=== PATIENT | male | born 1965 | race Caucasian/White ===

== ENCOUNTER 2016-10-30 15:24 | Observation (INO) ==
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
--- OUTSIDE RECORDS SUMMARY | 2016-10-30 15:50 | External Medical Summary | Encounter Summary ---
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 known anemia. Liver and Biliary system: The liver is normal in size without obviouslesion or biliary ductal dilatation. Gallbladder is largely decompressed. Spleen: Unremarkable. Adrenal Glands and Kidneys: The adrenal glands are unremarkable. There ismoderate bilateral nonspecific perinephric stranding/edema. Nohydronephrosis. Pancreas and Retroperitoneum: The pancreas is atrophic. No significantlyenlarged retroperitoneal lymph nodes are seen. Aorta and Major Vessels: Abdominal aorta is normal caliber. Bowel, Mesentery and Peritoneal space: There has been prior colectomy witha right lower quadrant ileostomy identified. There is mild abdominal freefluid with mesenteric edema. Evaluation of the bowel is limited without contrast. Area of gas and fluid deep to the midline abdominal wall islikely extraluminal in location, as demonstrated on image 3/5, similar inappearance to the prior exam. Abdominal wall and Osseous Structures: Right lower quadrant ileostomy isnoted with removal of the previously seen Marquez catheter traversing theostomy. There is progressive, now moderate, body wall edema with persistent foci of abdominal wall gas which demonstrates overall decreasecompared with August 01, 2016. No discrete drainable abdominal wall fluidcollection is seen. Prior posterior spinal fixation is again noted at L3-4 with marked disc degeneration and mild listhesis at the L2-3 level. IMPRESSION 1. Continued area of clustered gas, soft tissue thickening, and mild fluiddeep to the anterior abdominal wall at midline which is incompletelyevaluated without contrast, though may reflectpostoperative/postprocedural change versus an abscess. 2. Continued mild abdominal ascites and progressive body wall edema withimprovement in anterior abdominal wall gas. No drainable abdominal wallfluid collection is seen. 3. Removal of Marquez catheter that was previously seen traversing the rightlower quadrant ileostomy. Visualized bowel loops are now normal caliber. 4. Development of small to moderate bilateral pleural effusions andadjacent consolidation which may reflect atelectasis or pneumonia. Finalized by Roya Shelton M.D. on 08/05/2016 10:58 AM. Dictated byRoya Shelton M.D. on 08/05/2016 10:40 AM. CBC (08/05/2016 7:44 AM) Component Value Ref Range White Blood Cells 5.1 4.5 - 11.0 K/UL RBC 2.68(L) 4.4 - 5.5 M/UL Hemoglobin 8.0(L) 13.5 - 16.5 GM/DL Hematocrit 23.6(L) 40 - 50 % MCV 88.1 80 - 100 FL MCH 29.9 26 - 34 PG MCHC 33.9 32.0 - 36.0 G/DL RDW 13.9 11 - 15 % Platelet Count 174 150 - 400 K/UL MPV 7.1 7 - 11 FL Specimen Performing Laboratory Blood MAIN LAB [address] [place] [address] PHOSPHORUS (08/05/2016 5:18 AM) Component Value Ref Range Phosphorus 2.8 2.0 - 4.0 MG/DL Specimen Performing Laboratory Blood MAIN LAB [address] [place] [address] MAGNESIUM (08/05/2016 5:18 AM) Component Value Ref Range Magnesium 1.5(L) 1.6 - 2.6 mg/dL Specimen Performing Laboratory Blood MAIN [facility] [address] [place] [address] BASIC METABOLIC PANEL (08/05/2016 5:18 AM) Component Value Ref Range Sodium 134(L) 137 - 147 MMOL/L Potassium 3.8 3.5 - 5.1 MMOL/L Chloride 107 98 - 110 MMOL/L CO2 22 21 - 30 MMOL/L Anion Gap 5 3 - 12 Glucose 107(H) 70 - 100 MG/DL Blood Urea Nitrogen 7 7 - 25 MG/DL Creatinine 0.49 0.4 - 1.24 MG/DL Calcium 7.7(L) 8.5 - 10.6 MG/DL eGFR Non >60 >60 mL/min Comment: The eGFR is not validated for use in drug dosing adjustments.Continue to use estimated creatinine clearance per dosing reference text.Please contact the Clinical Pharmacist for questions. eGFR >60 >60 mL/min Comment: The eGFR is not validated for use in drug dosing adjustments.Continue to use estimated creatinine clearance per dosing reference text.Please contact the Clinical Pharmacist for questions. Specimen Performing Laboratory Blood MAIN [facility] [address] [place] [id number] ECG-SCAN (08/04/2016 3:03 PM) Narrative Ordered by an unspecified provider. ECG-SCAN (08/04/2016 3:03 PM) Narrative Ordered by an unspecified provider. PHOSPHORUS (08/04/2016 6:13 AM) Component Value Ref Range Phosphorus 1.9(L) 2.0 - 4.0 MG/DL Specimen Performing Laboratory Blood [facility] [address] [place] [address] MAGNESIUM (08/04/2016 6:13 AM) Component Value Ref Range Magnesium 2.1 1.6 - 2.6 mg/dL Specimen Performing Laboratory Blood MAIN [facility] [address] [place] [id number] CBC (08/04/2016 6:13 AM) Component Value Ref Range White Blood Cells 6.3 4.5 - 11.0 K/UL RBC 3.10(L) 4.4 - 5.5 M/UL Hemoglobin 9.4(L) 13.5 - 16.5 GM/DL Hematocrit 27.1(L) 40 - 50 % MCV 87.4 80 - 100 FL MCH 30.1 26 - 34 PG MCHC 34.5 32.0 - 36.0 G/DL RDW 13.7 11 - 15 % Platelet Count 193 150 - 400 K/UL MPV 7.6 7 - 11 FL Specimen Performing Laboratory Blood [facility] [address] [place] [id number] BASIC METABOLIC PANEL (08/04/2016 6:13 AM) Component Value Ref Range Sodium 132(L) 137 - 147 MMOL/L Potassium 3.6 3.5 - 5.1 MMOL/L Chloride 102 98 - 110 MMOL/L CO2 27 21 - 30 MMOL/L Anion Gap 3 3 - 12 Glucose 75 70 - 100 MG/DL Blood Urea Nitrogen 9 7 - 25 MG/DL Creatinine 0.61 0.4 - 1.24 MG/DL Calcium 7.9(L) 8.5 - 10.6 MG/DL eGFR Non >60 >60 mL/min Comment: The eGFR is not validated for use in drug dosing adjustments.Continue to use estimated creatinine clearance per dosing reference text.Please contact the Clinical Pharmacist for questions. eGFR >60 >60 mL/min Comment: The eGFR is not validated for use in drug dosing adjustments.Continue to use estimated creatinine clearance per dosing reference text.Please contact the Clinical Pharmacist for questions. Specimen Performing Laboratory [facility] [address] [place] [id number] PHOSPHORUS (08/03/2016 5:32 AM) Component Value Ref Range Phosphorus 1.6(L) 2.0 - 4.0 MG/DL Specimen Performing Laboratory Blood [facility] [address] [place] [id number] MAGNESIUM (08/03/2016 5:32 AM) Component Value Ref Range Magnesium 1.5(L) 1.6 - 2.6 mg/dL Specimen Performing Laboratory [facility] [address] [place] [id number] CBC (08/03/2016 5:32 AM) Component Value Ref Range White Blood Cells 4.8 4.5 - 11.0 K/UL RBC 2.57(L) 4.4 - 5.5 M/UL Hemoglobin 7.8(L) 13.5 - 16.5 GM/DL Hematocrit 22.6(L) 40 - 50 % MCV 88.0 80 - 100 FL MCH 30.2 26 - 34 PG MCHC 34.4 32.0 - 36.0 G/DL RDW 14.1 11 - 15 % Platelet Count 181 150 - 400 K/UL MPV 7.6 7 - 11 FL Specimen Performing Laboratory Blood [facility] [address] [place] [address] BASIC METABOLIC PANEL (08/03/2016 5:32 AM) Component Value Ref Range Sodium 137 137 - 147 MMOL/L Potassium 3.2(L) 3.5 - 5.1 MMOL/L Chloride 106 98 - 110 MMOL/L CO2 28 21 - 30 MMOL/L Anion Gap 3 3 - 12 Glucose 75 70 - 100 MG/DL Blood Urea Nitrogen 12 7 - 25 MG/DL Creatinine 0.58 0.4 - 1.24 MG/DL Calcium 8.4(L) 8.5 - 10.6 MG/DL eGFR Non >60 >60 mL/min Comment: The eGFR is not validated for use in drug dosing adjustments.Continue to use estimated creatinine clearance per dosing reference text.Please contact the Clinical Pharmacist for questions. eGFR >60 >60 mL/min Comment: The eGFR is not validated for use in drug dosing adjustments.Continue to use estimated creatinine clearance per dosing reference text.Please contact the Clinical Pharmacist for questions. Specimen Performing Laboratory Blood [facility] [address] [place] [id number] PHOSPHORUS (08/02/2016 4:58 AM) Component Value Ref Range Phosphorus 1.5(L) 2.0 - 4.0 MG/DL Specimen Performing Laboratory Blood [facility] [address] [place] [address] MAGNESIUM (08/02/2016 4:58 AM) Component Value Ref Range Magnesium 1.9 1.6 - 2.6 mg/dL Specimen Performing Laboratory Blood [facility] [address] [place] [id number] CBC (08/02/2016 4:58 AM) Component Value Ref Range White Blood Cells 7.5 4.5 - 11.0 K/UL RBC 2.49(L) 4.4 - 5.5 M/UL Hemoglobin 7.7(L) 13.5 - 16.5 GM/DL Hematocrit 21.5(L) 40 - 50 % MCV 86.5 80 - 100 FL MCH 30.9 26 - 34 PG MCHC 35.7 32.0 - 36.0 G/DL RDW 13.8 11 - 15 % Platelet Count 153 150 - 400 K/UL MPV 8.2 7 - 11 FL Specimen Performing Laboratory Blood [facility] [address] [place] [address] BASIC METABOLIC PANEL (08/02/2016 4:58 AM) Component Value Ref Range Sodium 139 137 - 147 MMOL/L Potassium 3.0(L) 3.5 - 5.1 MMOL/L Chloride 105 98 - 110 MMOL/L CO2 28 21 - 30 MMOL/L Anion Gap 6 3 - 12 Glucose 146(H) 70 - 100 MG/DL Blood Urea Nitrogen 16 7 - 25 MG/DL Creatinine 0.69 0.4 - 1.24 MG/DL Calcium 8.4(L) 8.5 - 10.6 MG/DL eGFR Non >60 >60 mL/min Comment: The eGFR is not validated for use in drug dosing adjustments.Continue to use estimated creatinine clearance per dosing reference text.Please contact the Clinical Pharmacist for questions. eGFR >60 >60 mL/min Comment: The eGFR is not validated for use in drug dosing adjustments.Continue to use estimated creatinine clearance per dosing reference text.Please contact the Clinical Pharmacist for questions. Specimen Performing Laboratory Blood [facility] [address] [place] [address] CRITICAL CARE (08/01/2016 4:25 PM) Narrative Modesto Powell MD 08/01/20164:25 PM Joselito Sandra is a 50 y.o. male. Chief Complaint: Chief Complaint Patient presents with Foreign Body Pen and Pencil in stoma History of Present Illness: HPI Comments: Joselito Sandra is a 50 y.o. male with a past medical history of depression with previous self injury, ulcerative colitis s/p colostomy placement.The patient is presenting after having stuck himself around the ostomy site multiple times with a pen and a pencil, eventually leaving the pen and pencil stuck in the ostomy.He says he's been refusing his medications for many months and has been very depressed.He stuck the pen/pencil in his ostomy site as a suicide attempt. He denies any drug/alcohol use.He has been eating/drinking well.He only takes his potassium supplement and aspirin. History provided by:Patient and medical records cad designer used: No Review of Systems: Review of Systems Constitutional: Positive for activity change. Negative for fever and chills. HENT: Negative for congestion. Eyes: Negative for visual disturbance. Respiratory: Negative for shortness of breath. Cardiovascular: Negative for chest pain. Gastrointestinal: Positive for abdominal pain. Negative for nausea, vomiting and diarrhea. Endocrine: Negative for polyuria. Genitourinary: Negative for dysuria and flank pain. Musculoskeletal: Negative for back pain and neck pain. Skin: Positive for wound. Negative for rash. Allergic/Immunologic: Negative for immunocompromised state. Neurological: Negative for weakness and headaches. Hematological: Does not bruise/bleed easily. Psychiatric/Behavioral: Positive for suicidal ideas, behavioral problems, sleep disturbance, self-injury, dysphoric mood and agitation. Negative for confusion. All other systems reviewed and are negative. Allergies: Adhesive tape; Azithromycin; and Fentanyl Past Medical History: Past Medical History Diagnosis Date Ulcerative Colitis Rectal Pain Adrenal Insufficiency Past Surgical History: No past surgical history on file. Pertinent medical/surgical history reviewed Social History: Social History Substance Use Topics Smoking status: Not on file Smokeless tobacco: Not on file Alcohol Use: Not on file History Drug Use Not on file Family History: No family history on file. Vitals: ED Vitals Date and Time T BP P RR SPO2P SPO2 [facility] 07/30/165 -- 96/67 mmHg 88 17 PER MINUTE 89 100 % 07/30/162229 -- 91/69 mmHg 86 16 PER MINUTE 86 100 % 07/30/162214 -- 99/69 mmHg 88 11 PER MINUTE 87 98 % 07/30/162199 -- 98/65 mmHg 85 18 PER MINUTE 85 100 % 07/30/162144 -- 97/72 mmHg 82 17 PER MINUTE 83 100 % 07/30/162129 -- 98/72 mmHg 83 15 PER MINUTE 83 100 % 07/30/162112 -- -- 83 20 PER MINUTE 82 (!) 90 % 07/30/162111 -- 98/67 mmHg -- -- -- -- 07/30/162044 -- 109/71 mmHg 86 9 PER MINUTE 86 99 % 07/30/162029 -- 98/72 mmHg 88 8 PER MINUTE 88 100 % 07/30/161999 -- 99/61 mmHg 92 15 PER MINUTE 94 99 % 07/30/161955 36.8 C (98.2 F) 108/76 mmHg -- 18 PER MINUTE 90 99 % HW Physical Exam: Physical Exam Constitutional: He is oriented to person, place, and time. He appears well-developed and well-nourished. No distress. HENT: Head: Normocephalic and atraumatic. Right Ear: External ear normal. Left Ear: External ear normal. Eyes: Conjunctivae and EOM are normal. Pupils are equal, round, and reactive to light. Right eye exhibits no discharge. Left eye exhibits no discharge. No scleral icterus. Neck: Normal range of motion. Neck supple. No tracheal deviation present. Cardiovascular: Normal rate, regular rhythm, normal heart sounds and intact distal pulses.Exam reveals no gallop and no friction rub. No murmur heard. Pulmonary/Chest: Effort normal and breath sounds normal. No respiratory distress. He has no wheezes. He has no rales. He exhibits no tenderness. Abdominal: Soft. He exhibits no distension and no mass. There is no tenderness. There is no rebound and no guarding. No hernia. Musculoskeletal: Normal range of motion. He exhibits no edema, tenderness or deformity. Neurological: He is alert and oriented to person, place, and time. He exhibits normal muscle tone. Skin: He is not diaphoretic. Nursing note and vitals reviewed. Laboratory Results: Results for orders placed or performed during the hospital encounter of 07/30/16 (from the past 24 hour(s)) CBC AND DIFF Result Value Ref Range White Blood Cells 7.9 4.5 - 11.0 K/UL RBC 3.57 (L) 4.4 - 5.5 M/UL Hemoglobin 10.8 (L) 13.5 - 16.5 GM/DL Hematocrit 31.1 (L) 40 - 50 % MCV 86.9 80 - 100 FL MCH 30.2 26 - 34 PG MCHC 34.8 32.0 - 36.0 G/DL RDW 13.3 11 - 15 % Platelet Count 267 150 - 400 K/UL MPV 7.4 7 - 11 FL Neutrophils 74 41 - 77 % Lymphocytes 15 (L) 24 - 44 % Monocytes 10 4 - 12 % Eosinophils 1 0 - 5 % Basophils 0 0 - 2 % Absolute Neutrophil Count 5.90 1.8 - 7.0 K/UL Absolute Lymph Count 1.20 1.0 - 4.8 K/UL Absolute Monocyte Count 0.80 0 - 0.80 K/UL Absolute Eosinophil Count 0.10 0 - 0.45 K/UL Absolute Basophil Count 0.00 0 - 0.20 K/UL COMPREHENSIVE METABOLIC PANEL Result Value Ref Range Sodium 124 (L) 137 - 147 MMOL/L Potassium 4.5 3.5 - 5.1 MMOL/L Chloride 78 (L) 98 - 110 MMOL/L Glucose 121 (H) 70 - 100 MG/DL Blood Urea Nitrogen 50 (H) 7 - 25 MG/DL Creatinine 1.67 (H) 0.4 - 1.24 MG/DL Calcium 9.2 8.5 - 10.6 MG/DL Total Protein 7.8 6.0 - 8.0 G/DL Total Bilirubin 0.4 0.3 - 1.2 MG/DL Albumin 4.1 3.5 - 5.0 G/DL Alk Phosphatase 65 25 - 110 U/L AST (SGOT) 31 7 - 40 U/L CO2 35 (H) 21 - 30 MMOL/L ALT (SGPT) 33 7 - 56 U/L Anion Gap 11 3 - 12 eGFR Non 44 (L) >60 mL/min eGFR 53 (L) >60 mL/min PROTIME INR (PT) Result Value Ref Range INR 1.4 (H) 0.8 - 1.2 PTT (APTT) Result Value Ref Range APTT 27.6 24.0 - 40.0 SEC TYPE & CROSSMATCH Result Value Ref Range Units Ordered 0 Crossmatch Expires 08/02/2016 Record Check 2ND TYPE REQUIRED ABO/RH(D) O POS Antibody Screen NEG POC CREATININE, RAD Result Value Ref Range Creatinine, POC 2.0 (H) 0.4 - 1.24 MG/DL Radiology Interpretation: CT ABDOMEN W CONTRAST Preliminary Result 1. No extravasation of contrast from the distal ileum. 2. Mild to moderate dilatation of the small bowel probably from occlusion of the distal ileum by Marquez balloon. 3. Small cluster of gas and soft tissue thickening in the deep anterior abdominal wall at midline without significant pneumoperitoneum. Moderate subcutaneous emphysema within the subcutaneous fat without abdominal wall fluid collection. Approved by Keena Brink M.D. on 08/01/2016 3:[address] PELVIS WO/W CONTRAST Preliminary Result 1. No extravasation of contrast from the distal ileum. 2. Mild to moderate dilatation of the small bowel probably from occlusion of the distal ileum by Marquez balloon. 3. Small cluster of gas and soft tissue thickening in the deep anterior abdominal wall at midline without significant pneumoperitoneum. Moderate subcutaneous emphysema within the subcutaneous fat without abdominal wall fluid collection. Approved by Keena Brink M.D. on 08/01/2016 3:45 PM CHEST SINGLE VIEW Final Result No radiographic evidence of acute cardiopulmonary abnormality. Previously described soft tissue opacity projecting over the right lung is not identified on the current study. Approved by Vickey Kirby M.D. on 07/31/2016 10:12 AM By my electronic signature, I attest that I have personally reviewed the images for this examination and formulated the interpretations and opinions expressed in this report Finalized by Michael Williamson M.D. on 07/31/2016 10:30 AM. Dictated by Vickey Kirby M.D. on 07/31/2016 8:59 AM. ABD ACUTE COMPLETE W PA CHEST Final Result 1. No evidence of retained foreign body. 2. Nodular 2.0 cm opacity projects over the right midlung. 2 view chest x-ray or comparison with prior chest radiograph examinations if available is recommended. By my electronic signature, I attest that I have personally reviewed the images for this examination and formulated the interpretations and opinions expressed in this report Finalized by Jesse Lacy M.D. on 07/31/2016 6:20 AM. Dictated by Jessica Barron M.D. on 07/31/2016 6:[address] ABD/PELV WO CONTRAST Final Result 1. Prior proctocolectomy with right lower quadrant ileostomy. There is soft tissue gas and fat stranding in the soft tissues surrounding the patient's ostomy site consistent with recent penetrating trauma, though no retained foreign bodies appreciated. There is some fluid and gas seen in the anterior lower abdomen and pelvis adjacent to this which primarily appears extraperitoneal, though minimal intraperitoneal free air is seen just deep to the ileostomy. 2. Mild dilatation of the ileum just proximal to the ileostomy site. This may represent a low-grade obstruction due to some posttraumatic edema at the ileostomy. 3. Redemonstration of some scarring in the presacral region and lower posterior pelvis. Dr. Mendez of surgery was not immediately available to emergency room at time of phone call, with case discussed by myself with ER resident at 5:44 PM on July 30, 2016. Finalized by Jesse Lacy M.D. on 07/30/2016 9:45 PM. Dictated by Jesse Lacy M.D. on 07/30/2016 9:19 PM. EKG: None ED Course: - Pt seen and evaluated by resident and attending for: Self-injury with pen/pencil to ostomy site - Vitals reviewed and documented - Clinical course: x-ray was performed to evaluate for free air.This was inconclusive. Trauma was consulted.They ordered CT.This is changed to without contrast is new [place] I. Patient denies any alcohol/drug use well, therefore this likely does not contribute to his HPI/hyponatremia Patient is treated while in the ED.IV therapy team has been called to evaluate his indwelling PICC line. Patient was admitted to trauma for further evaluation. MDM Reviewed: previous chart, nursing note and vitals Reviewed previous: labs and CT scan Interpretation: labs, CT scan and x-ray Total time providing critical care: 30-74 minutes. This excludes time spent performing separately reportable procedures and services. Consults: admitting MD and trauma Facility Administered Meds: Facility-Administered Medications as of 07/30/2016 Medication Last Dose [COMPLETED] alteplase (CATHFLO ACTIVASE) injection 2 mg 2 mg at 07/30/162112 [DISCONTINUED] ampicillin/sulbactam (UNASYN) 3 g in sodium chloride 0.9% (NS) 100 mL IVPB (MB+) [COMPLETED] morphine injection syringe 4 mg 4 mg at 07/30/16 2200 [COMPLETED] sodium chloride0.9 % infusion 1,000 mL at 07/30/16 2319 Clinical Impression: Final diagnoses: Acute foreign body of abdominal wall, initial encounter (Primary) Self-inflicted injury Suicidal ideation Disposition/Follow up Admit No follow-up provider specified. Medications: New Prescriptions No medications on file Procedure Notes: Critical Care Performed by: MODESTO POWELL Authorized by: MODESTO POWELL Total critical care time in minutes: 35 Critical care was exclusive of separately billable procedures and treating other patients and teaching time. Critical care was necessary to treat or prevent imminent or life-threatening deterioration of the following conditions: trauma. Critical care was spent personally by me on the following activities: blood draw for specimens, development of treatment plan with patient or surrogate, discussions with consultants, interpretation of cardiac output measurements, evaluation of patient's response to treatment, examination of patient, obtaining history from patient or surrogate, ordering and performing treatments and interventions, ordering and review of laboratory studies, pulse oximetry, ordering and review of radiographic studies, re-evaluation of patient's condition and review of old charts. Resident Supervision: James Pimentel MD Attestation / Supervision Note concerning Joselito Sandra: I personally performed the noble portions of the E/M visit, discussed case with resident and concur with resident documentation of history, physical exam, assessment, and treatment plan unless otherwise noted. Modesto Powell MD C DIFFICILE BY PCR (08/01/2016 3:55 PM) Component Value Ref Range Battery Name C DIFFICILE PCR Specimen Description FECES Special Requests NONE C. Difficile Toxin B PCR NEGATIVE-wait 7 days to repeat test Report Status FINAL 08/01/2016 Specimen Performing Laboratory Feces [facility] [address] [place] [address] CT PELVIS WO/W CONTRAST (08/01/2016 2:53 PM) Specimen Performing Laboratory [facility] RAD RESULTS Impressions 1. No extravasation of contrast from the distal ileum. 2. Mild to moderate dilatation of the small bowel probably from occlusion of the distal ileum by Marquez balloon. 3. Small cluster of gas and soft tissue thickening in the deep anterior abdominal wall at midline without significant pneumoperitoneum. Moderate subcutaneous emphysema within the subcutaneous fat without abdominal wall fluid collection. Approved by Keena Brink M.D. on 08/01/2016 3:45 PM By my electronic signature, I attest that I have personally reviewed the images for this examination and formulated the interpretations and opinions expressed in this report Finalized by Oscar Cabello M.D. on 08/01/2016 5:32 PM. Dictated by Keena Brink M.D. on 08/01/2016 3:[address] ABDOMEN AND PELVIS Clinical Indication:Male, 50 years old. Trauma to ostomy Technique:Multiple contiguous axial images were obtained through the abdomen and pelvis following the administration of IV contrast material. Noncontrast as well as portal venous and delayed phaseimaging was obtained through the abdomen. Post processing coronal and sagittal reconstruction images were made from the axial images. IV contrast: Isovue-370 Bowel contrast:Gastroview instilled through the ileostomy Comparison: CT abdomen/pelvis July 30, 2016 FINDINGS: Lower Thorax: Mild dependent atelectasis. Normal-sized heart. Liver and Biliary system: Normal sized liver without focal hepatic lesion. Nondistended gallbladder. Spleen: Unremarkable. Adrenal Glands and Kidneys: Unremarkable. Pancreas and Retroperitoneum: Unremarkable. Aorta and Major Vessels: Normal caliber abdominal aorta. 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 Contrast is instilled retrograde within the Marquez catheter within the ileostomy. There is retrograde passage of contrast to the distal ileum for at least 30 cm without contrast extravasation from the ileum. Mild to moderate dilatation of the small bowel loops above the ileostomy, which may be fromlarge inflated Marquez balloon. No leakage of contrast through the ostomy site is identified. Mild abdominal ascites. No focal fluid collections. Pelvis: Atrophic prostate. Bladder is unremarkable. Abdominal wall and Osseous Structures: Small cluster of gas within the midline of the deep anterior abdominal wall (series 7 image 55). Moderate subcutaneous emphysema is noted surrounding the ostomyand extending across midline. Posterior spinal hardware is again noted at L3-L4. Procedure Note Interface, Radiant Results - 08/01/2016 5:[address] ABDOMEN AND PELVIS Clinical Indication: Male, 50 years old. Trauma to ostomy Technique: Multiple contiguous axial images were obtained through theabdomen and pelvis following the administration of IV contrast material.Noncontrast as well as portal venous and delayed phase imaging was obtained through the abdomen. Post processing coronal and sagittalreconstruction images were made from the axial images. IV contrast: Isovue-370 Bowel contrast: Gastroview instilled through the ileostomy Comparison: CT abdomen/pelvis July 30, 2016 FINDINGS: Lower Thorax: Mild dependent

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
[2016-10-30] MEDS ORDERED: SALINE FLUSH 10ml SYRINGE IVF PRN (16:11)
[2016-10-30] MEDS: NS 1,000 ML IV SCH ×3 (16:21→19:01)
--- NOTE | 2016-10-30 17:14 | Emergency Department Report ---
General Adult HPI - General Chief complaint: Weakness Stated complaint: Abnormal Labs Time Seen by Provider: 10/30/16 15:39 Source: patient Mode of arrival: ambulatory Limitations: no limitations - History of Present Illness HPI narrative: He presents to ER today for evaluation of abnormal labs. Was sent in by his PCP. He states that he has an ostomy bag and has a history of high output. He often has trouble with low potassium and magnesium due to this. He is a resident at [facility]. Was evaluated in ER on and had elevated creatinine at that time as well as K+ of 2.9 and Mag of 1.4, creatinine was elevated at 2.7 with BUN of 68. Was given IVF and K+ replacement. Patient did not want admission as he only has 30 days approved for treatment at [facility]. Followed up today for labs and his creatinine was higher today so was sent back to Er for eval. He has been having muscle cramping which is something he usually experiences when his electrolytes are abnormal. Denies any symptoms otherwise. When asked if he has any history of renal disease he state that he is not aware of any. Onset (ago): day(s) Severity: moderate Consistency: intermittent Relieving factors: none Exacerbating factors: none Associated symptoms: denies other symptoms - Related Data Home Medications Medication Instructions Recorded Confirmed Gabapentin [Neurontin] 300 mg PO BID 10/23/16 10/30/16 Naproxen [Naprosyn] 500 mg PO BID 10/23/16 10/30/16 OLANZapine [Olanzapine] 10 mg PO DAILY 10/23/16 10/30/16 Potassium Chloride ER Tab [K-Dur] 40 meq PO BID 10/23/16 10/30/16 Sertraline [Zoloft] 100 mg PO DAILY 10/23/16 10/30/16 Sucralfate [Carafate] 1 gm PO QID 10/23/16 10/30/16 Tamsulosin [Flomax] 0.4 mg PO HS 10/23/16 10/30/16 Acetaminophen [Acetaminophen Extra 1,000 mg PO Q8H PRN 10/30/16 10/30/16 Strength] Dicyclomine HCl [Bentyl] 20 mg PO TID 10/30/16 10/30/16 Previous Rx's Medication Instructions Recorded Magnesium Oxide [Magnesium] 400 mg PO TID #90 cap 10/23/16 Allergies Allergy/AdvReac Type Severity Reaction Status Date / Time No Known Allergies Allergy Verified 10/30/16 15:36 Review of Systems Constitutional: Denies: fever, chills, weakness Cardiovascular: Denies: chest pain, palpitations, dyspnea on exertion Respiratory: Denies: cough, dyspnea, wheezes Gastrointestinal: Reports: diarrhea. Denies: abdominal pain, nausea, vomiting Integumentary: Denies: rash Neurological: Reports: other (muscle cramping). Denies: headache, weakness, numbness, paresthesias PFSH Patient Stated Medical History Other GI Yes: ULCERATIVE COLITIS Other Yes: SLOW FLOW Substance Use Disorder Yes: Meth Medical History Updates: Methamphetamine abuse. Ulceratic colitis. Short bowel syndrome. Electrolyte disturbances Surgical History: Colectomy with ostomy - Social History Smoking status: Current every day smoker Substance use type: former substance user Alcohol intake frequency: former alcohol drinker Physical Exam - General General appearance: alert, in no apparent distress - Normal Exams: ENMT:: No facial trauma, nasal exudates, pharyngeal erythema, or exudates are noted Neck:: Full range of motion, without adenopathy, JVD, bruits or thyromegaly Chest/Respirations:: Clear all noble, with good airflow, and symmetry bilaterally Cardiovascular:: Regular rate and rhythm, without murmur or gallop, Pulses 2+ all extremities, capillary refill, <2 seconds all extremities Abdomen:: Bowel sounds positive, soft, non-tender, non-distended, no hepatosplenomegaly, masses or bruits noted Integumentary:: No rashes, hives, or bruising noted Course Vital Signs Temperature 98.4 F 10/30/16 15:30 Pulse Rate 93 10/30/16 15:30 Respiratory Rate 10/30/16 15:30 Blood Pressure 119/64 10/30/16 15:30 Pulse Oximetry 96 10/30/16 15:30 Temperature 98.4 F 10/30/16 15:30 Pulse Rate 86 10/30/16 15:40 Respiratory Rate 10/30/16 15:30 Blood Pressure 104/63 10/30/16 15:40 Pulse Oximetry 99 10/30/16 15:40 Medical Decision Making - MDM Narrative Medical decision making narrative: Creatinine today is up to 3.7 from 2.5 1 week ago. K+-4.0 and mag-1.2. Did discuss HPI and labs with Dr Luu who will accept for admission at this time. - Differential Diagnosis Dehydration, hypo/hyperkalemia, hyper/hypomagnesemia, ARF - Lab Data Lab results reviewed: Yes: I reviewed the patient's lab results. Result diagrams: 10/30/16 15:57 10/30/16 15:57 Lab Results 10/30/16 10/30/16 Range/Units 15:57 15:57 WBC 5.2 (4.5-11.0) T/MM3 RBC 3.65 L (4.50-5.90) M/MM3 Hgb 10.9 L (13.5-17.5) GM/DL Hct 31.9 L (41-53) % MCV 87.4 (80-100) UM3 MCH 29.9 (26-34) UUG MCHC 34.2 (31-37) GM/DL RDW Std Deviation 38.9 (36.9-50.2) FL Plt Count 178 (130-400) T/MM3 MPV 9.9 (9.4-12.4) UM3 Immature Gran % (Auto) 0.2 (0.0-0.5) % Neut % (Auto) 66.8 H (33-66) % Lymph % (Auto) 22.4 L (23-45) % [place] % (Auto) 8.3 (0-9.0) % Eos % (Auto) 1.9 (0-4) % Baso % (Auto) 0.4 (0-2) % Neut # 3.5 (1.8-7.7) T/MM3 Lymph # 1.2 (1-4.8) T/MM3 [place] # 0.4 (0-0.8) T/MM3 Eos # 0.1 (0-0.5) T/MM3 Baso # 0.0 (0-0.2) T/MM3 Abs Immat Gran (auto) 0.01 (0.00-0.03) T/MM3 Turbidity < 20 (0-20) Sodium 130 L (134-144) MEQ/L Potassium 4.0 (3.6-5) MEQ/L Chloride 66 L (98-107) MEQ/L Carbon Dioxide 48 H* (22-30) MEQ/L Anion Gap 16 H (5-15) MEQ/L BUN 87.0 H* (9-20) MG/DL Creatinine 3.5 H (0.8-1.5) MG/DL GFR Calculation 18 BUN/Creatinine Ratio 25 (6-26) RATIO Glucose 124 H (75-110) MG/DL Calculated Osmolality 279 (261-280) MOSM/KG Calcium 10.1 (8.4-10.2) MG/DL Magnesium 1.2 L (1.6-2.3) MG/DL Total Bilirubin 0.50 (0.20-1.30) MG/DL Icterus Index < 2 (0-7) AST 38 (17-59) U/L ALT 33 (21-72) U/L Alkaline Phosphatase 66 (38-126) U/L Total Protein 8.5 H (6.3-8.2) G/DL Albumin 4.7 (3.5-5.0) G/DL Globulin 3.8 H (2.4-3.6) G/DL Albumin/Globulin Ratio 1.2 (1.1-2.2) RATIO Specimen Hemolysis < 15.0 (0-25) Disposition Clinical Impression: Elevated serum creatinine Disposition: 02 To OBS [facility] [place] Condition: Stable Prescriptions: No Action Tamsulosin [Flomax] 0.4 mg PO HS OLANZapine [Olanzapine] 10 mg PO DAILY Sertraline [Zoloft] 100 mg PO DAILY Potassium Chloride ER Tab [K-Dur] 40 meq PO BID Sucralfate [Carafate] 1 gm PO QID Magnesium Oxide [Magnesium] 400 mg PO TID #90 cap Naproxen [Naprosyn] 500 mg PO BID Gabapentin [Neurontin] 300 mg PO BID Dicyclomine HCl [Bentyl] 20 mg PO TID Acetaminophen [Acetaminophen Extra Strength] 1,000 mg PO Q8H PRN PRN Reason: Pain Time of Disposition: 17:22 - Seen By: midlevel
[2016-10-30] MEDS ORDERED: ONDANSETRON 4 MG/2 ML INJECTION IVP PRN (18:09)
[2016-10-30] MEDS ORDERED: ACETAMINOPHEN 500 MG TABLET PO PRN (18:38)
[2016-10-30] MEDS ORDERED: MAGNESIUM SULFATE 1gm PREMIX 1 GM/100 ML BAG IV ONE (18:40)
--- NOTE | 2016-10-30 19:10 | History & Physical Report ---
History of Present Illness Date: 10/30/16 Chief complaint: Weakness, lab abnormality HPI: 51 y/o WM with short gut syndrome secondary to UC and Hx of colectomy and ostomy presents to ED for evaluation of lab abnormality and weakness. Has history of low potassium and magnesium secondary to short gut-does take his oral replacements faithfully. Was seen at [facility] ED on 10/23 due to cramping and elevated creatinine. At that time creatinine 2.7 and potassium low at 2.9 with magnesium low at 1.4. Was treated and release-hospitalization offered to patient , but as in [facility] to help his recovery he decline admission so as not to slow his progress. Since then has been adherent with plenty of water intake as well as sport drink. Not having n/v or ab pain. Stool output still increased. Had repeat lab done showing persistent abnormality-pt also noting he has cramps and spasms to hands and leg. He has not been having breathing problems-no SOA, cough , congestion. Denies chest pressure, pain, or palpitations. Urine output decreased-notes little urination since his ostomy 7 years ago. Stream slow and hard to start-to significant change with Flomax. Denies itching. No f/c. In ED, lab was repeated. Creatinine with increase from 2.7 to 3.5. Potassium normal at 4.0 but magnesium decreased to 1.2. Dr Luu notified and patient placed in OBS for hydration and correction of his electrolyte disturbance. Review of Systems All systems: reviewed and no additional remarkable complaints except as stated - Constitutional Constitutional: Present: as per HPI - Gastrointestinal Gastrointestinal: Present: diarrhea (Chronic loose stool with increased output in ostomy). Absent: nausea, vomiting - Genitourinary Genitourinary: Present: difficulty urinating, urinary hesitancy - Musculoskeletal Musculoskeletal: Present: back pain (Chronic-Hx fusion L3-L4), muscle cramps, muscle weakness [facility] Patient Stated Medical History Other GI Yes: ULCERATIVE COLITIS, short bowel syndrome Other Yes: SLOW FLOW Substance Use Disorder Yes: Meth Medical History Updates: Methamphetamine abuse-In [facility] for treatment. Ulceratic colitis. Short bowel syndrome. Electrolyte disturbances. BPH Surgical History: Colectomy with ostomy. L3-L4 fusion Family History Updates: Father with complications of heart disease. Mother living and good health - does have back problems. - Social History Smoking status: Current every day smoker packs per day: 0.5 Alcohol intake: former Housing: other ([facility]-getting ready for reintegration) Medications Home Medications Medication Instructions Recorded Confirmed Type Gabapentin [Neurontin] 300 mg PO BID 10/23/16 10/30/16 History Naproxen [Naprosyn] 500 mg PO BID 10/23/16 10/30/16 History OLANZapine [Olanzapine] 10 mg PO DAILY 10/23/16 10/30/16 History Potassium Chloride ER Tab [K-Dur] 40 meq PO BID 10/23/16 10/30/16 History Sertraline [Zoloft] 100 mg PO DAILY 10/23/16 10/30/16 History Sucralfate [Carafate] 1 gm PO QID 10/23/16 10/30/16 History Tamsulosin [Flomax] 0.4 mg PO HS 10/23/16 10/30/16 History Acetaminophen [Acetaminophen Extra 1,000 mg PO Q8H PRN 10/30/16 10/30/16 History Strength] Dicyclomine HCl [Bentyl] 20 mg PO TID 10/30/16 10/30/16 History Allergies Allergy/AdvReac Type Severity Reaction Status Date / Time No Known Allergies Allergy Verified 10/30/16 15:36 Exam Vital Signs: Temperature 95.7 F L 10/30/16 18:30 Pulse Rate 69 10/30/16 18:30 Respiratory Rate 16 10/30/16 18:30 Blood Pressure 97/66 10/30/16 18:30 Pulse Oximetry 100 10/30/16 18:30 Oxygen Delivery Method Room Air Height: 1.68 m Weight: 58.4 kg Body Mass Index: 20.7 - Constitutional Present: no acute distress, well nourished, well developed, cooperative. Absent : combative, agitated - Routine HEENT Exam Head: Present: normocephalic, atraumatic Eye: Present: EOMI, PERRL ENT: Present: mucous membranes dry, oropharynx clear - Routine Neck Exam Present: supple, full ROM, trachea midline - Routine Respiratory Exam Present: CTA bilaterally. Absent: respiratory distress, rhonchi, wheezes, crackles - Routine Cardiovascular Exam Present: RRR, no murmur - Routine Abdominal Exam Present: soft, normoactive bowel sounds, non distended, non tender, ostomy - Routine Extremities Exam Present: no edema, pulses intact. Absent: cyanosis, clubbing - Routine Skin Exam Present: intact, warm, normal turgor - Routine Neurological Exam Present: alert, oriented X3, CN II-XII intact, vision grossly intact, hearing grossly intact. Absent: motor deficit - Routine Psychiatric Exam Present: normal affect, normal thought process, cooperative, good insight, good judgment. Absent: anxious, agitated Results - Labs CBC & Chem 7: 10/30/16 15:57 10/30/16 15:57 Labs: Laboratory Tests 10/30/16 15:57 Magnesium 1.2 L Assessment and Plan (1) Acute kidney injury Current visit: Yes Status: Acute (2) Hyponatremia Problem details: POA Current visit: Yes Status: Acute (3) Hypomagnesemia Problem details: POA Current visit: Yes Status: Acute (4) Metabolic alkalosis Current visit: Yes Status: Chronic (5) Ulcerative colitis Current visit: Yes Status: Chronic (6) Short gut syndrome Current visit: Yes Status: Chronic (7) BPH (benign prostatic hyperplasia) Current visit: Yes Status: Chronic (8) Anemia Current visit: Yes Status: Chronic (9) Tobacco dependence Current visit: Yes Status: Chronic (10) Polysubstance abuse Problem details: Intreatment at [facility]. Current visit: Yes Status: Chronic DVT Prophylaxis: SCD's Resuscitation Status: Full Code Assessment and Plan: Place patient in OBS for treatment of his BRAULIO and correction of electrolyte abnormalities. NS at 150cc/hr to help renal status and improve sodium. Renal US secondary to BRAULIO. Nursing to check post void residuals due to BRAULIO. Give magnesium 1g IV x1-cautiously replace due to BRAULIO. Continue home medications, holding potassium and NSAID due to elevated creatinine. SCD for DVT prevention. RT for tobacco cessation-pt interested in stopping smoking. May use Nicotine patch. Tylenol as needed for pain. Check prealbumin to assess nutritional status - continue Boost BID. Recheck BMP, Mg, Phos, and CBC in am. Code status full as per patient request. Case discussed with ED provider. Sepsis Assessment - Evaluation Sepsis screening result: No Definite Risk Hospital Course Summary Disclaimer: The visit summary below is not to be considered part of the above Progress Note. Hospital Course: 10/30/[address] patient in OBS for treatment of his BRAULIO and correction of electrolyte abnormalities. NS at 150cc/hr to help renal status and improve sodium. Renal US secondary to BRAULIO. Nursing to check post void residuals due to BRAULIO. Give magnesium 1g IV x1-cautiously replace due to BRAULIO. Continue home medications, holding potassium and NSAID due to elevated creatinine. SCD for DVT prevention. RT for tobacco cessation-pt interested in stopping smoking. May use Nicotine patch. Tylenol as needed for pain. Check prealbumin to assess nutritional status - continue Boost BID. Recheck BMP, Mg, Phos, and CBC in am. Code status full as per patient request.
[2016-10-30] MEDS: NICOTINE 7 MG PATCH TD SCH (20:36)
[2016-10-30] MEDS: SUCRALFATE 1 GM TABLET PO SCH (20:38)
[2016-10-30] MEDS: MAGNESIUM OXIDE 400 MG TABLET PO SCH (20:39)
[2016-10-30] MEDS: TAMSULOSIN 0.4 MG CAPSULE PO SCH ×2 (20:45→22:50)
[2016-10-30] MEDS: DICYCLOMINE 20mg TABLET PO SCH (20:45)
[2016-10-30] MEDS ORDERED: GABAPENTIN 300 MG CAPSULE PO SCH ×3 (21:00→22:45)
[2016-10-30] MEDS ORDERED: OLANZapine 10 MG TABLET PO SCH (23:00)
[2016-10-31] MEDS: NS 1,000 ML IV SCH (03:43)
[2016-10-31] MEDS: DICYCLOMINE 20mg TABLET PO SCH ×3 (06:35→16:14)
[2016-10-31] MEDS ORDERED: GABAPENTIN 300 MG CAPSULE PO SCH (08:00)
--- NOTE | 2016-10-31 08:34 | Ultrasound Report ---
Indication: Acute kidney injury PROCEDURE: US renal BI: Encounter: Initial Comparison: None Technique: Grayscale and color Doppler sonographic imaging of both kidneys was performed. FINDINGS: Both kidneys are present with normal cortical thickness and echogenicity. No evidence for collecting system dilatation, contour deforming mass, or abnormal perinephric fluid collection. The right kidney measures 10.6 cm in length, and the left kidney measures 12 cm in length. Possible small stone in the superior pole right kidney. Doppler flow noted to both kidneys. IMPRESSION: No hydronephrosis. .
[2016-10-31] MEDS: SUCRALFATE 1 GM TABLET PO SCH ×3 (08:51→16:14)
[2016-10-31] MEDS: MAGNESIUM OXIDE 400 MG TABLET PO SCH ×2 (08:51→14:23)
[2016-10-31] MEDS: NICOTINE 7 MG PATCH TD SCH (08:51)
[2016-10-31] MEDS ORDERED: SERTRALINE 100 MG TABLET PO SCH (09:00)
[2016-10-31] MEDS ORDERED: NICOTINE PATCH REMOVAL TD SCH (09:00)
[2016-10-31] MEDS ORDERED: OLANZapine 10 MG TABLET PO SCH (09:00)
[2016-10-31] MEDS: LIDOCAINE 1% 2ml INJ 10 MG, POTASSIUM CHLORIDE INJ 10 MEQ in NS 100 ML IV SCH ×4 (09:34→13:30)
--- NOTE | 2016-10-31 11:38 | Progress Note ---
Subjective: F/U: BRAULIO, Low Mg Doing well today. Not having the muscle cramps and stiffness/spasm as before. No n/v. Eating well. Urine output still with decrease. Breathing well-not SOA or congested. No chest pressure or pain. Ambulating well-not dizzy/unsteady when up. Strength improving. Feels much better in general. Objective Vital signs: Temperature 96.5 F L 10/31/16 07:33 Pulse Rate 67 10/31/16 07:33 Respiratory Rate 14 10/31/16 07:33 Blood Pressure 101/65 10/31/16 07:33 Pulse Oximetry 99 10/31/16 07:33 Oxygen Delivery Method Room Air Weight: 57.9 kg - Constitutional Present: no acute distress, well nourished, well developed, thin, cooperative. Absent: combative, agitated - Routine HEENT Exam Head: Present: normocephalic, atraumatic Eye: Present: EOMI, PERRL. Absent: conjunctival icterus ENT: Present: mucous membranes dry - Routine Respiratory Exam Present: CTA bilaterally. Absent: respiratory distress, rhonchi, wheezes, crackles - Routine Cardiovascular Exam Present: RRR, murmur - Routine Abdominal Exam Present: soft, normoactive bowel sounds, non distended, non tender - Routine Extremities Exam Present: pulses intact. Absent: cyanosis, clubbing, edema - Routine Musculoskeletal Exam Musculoskeletal: Present: no clubbing or cyanosis, normal strength - Routine Neurological Exam Present: alert, oriented X3, CN II-XII intact, vision grossly intact, hearing grossly intact. Absent: motor deficit - Routine Psychiatric Exam Present: normal affect, normal thought process, cooperative, good insight, good judgment. Absent: anxious, agitated Results - Labs CBC & Chem 7: 10/31/16 05:55 10/31/16 05:56 Labs: Laboratory Tests 10/31/16 05:56 Phosphorus 4.2 Magnesium 1.6 D Assessment and Plan (1) Acute kidney injury Current visit: Yes Status: Acute (2) Hypokalemia Problem details: Not POA Current visit: Yes Status: Acute (3) Hyponatremia Problem details: POA Current visit: Yes Status: Resolved (4) Hypomagnesemia Problem details: POA Current visit: Yes Status: Resolved (5) Metabolic alkalosis Current visit: Yes Status: Chronic (6) Ulcerative colitis Current visit: Yes Status: Chronic (7) Short gut syndrome Current visit: Yes Status: Chronic (8) BPH (benign prostatic hyperplasia) Current visit: Yes Status: Chronic (9) Anemia Current visit: Yes Status: Chronic (10) Tobacco dependence Current visit: Yes Status: Chronic (11) Polysubstance abuse Problem details: Intreatment at [facility]. Current visit: Yes Status: Chronic DVT Prophylaxis: SCD's Resuscitation Status: Full Code Assessment and Plan: Renal US showing no hydronephrosis. Creatinine with decrease from 3.5 to 2.3. Restart potassium - BRAULIO improving and potassium decreased. With decrease of potassium, will give IV bolus. Will recheck BMP after IV potassium bolus infused to ensure improvement of potassium. Anticipate discharge to [facility] this afternoon if lab showing improvement. Will have pt F/U with [facility] in 1 week to recheck lab. See orders for details. Sepsis Assessment - Evaluation Sepsis screening result: No Definite Risk Hospital Course Summary Disclaimer: The visit summary below is not to be considered part of the above Progress Note. Hospital Course: 10/30/[address] patient in OBS for treatment of his BRAULIO and correction of electrolyte abnormalities. NS at 150cc/hr to help renal status and improve sodium. Renal US secondary to BRAULIO. Nursing to check post void residuals due to BRAULIO. Give magnesium 1g IV x1-cautiously replace due to BRAULIO. Continue home medications, holding potassium and NSAID due to elevated creatinine. SCD for DVT prevention. RT for tobacco cessation-pt interested in stopping smoking. May use Nicotine patch. Tylenol as needed for pain. Check prealbumin to assess nutritional status - continue Boost BID. Recheck BMP, Mg, Phos, and CBC in am. Code status full as per patient request. 10/31/16 Clinically feeling well. Muscle cramps and spasms resolved. No n/v. Eating well. Renal US showing no hydronephrosis. Creatinine with decrease from 3.5 to 2.3. Restart potassium - BRAULIO improving and potassium decreased. With decrease of potassium, will give IV bolus. Will recheck BMP after IV potassium bolus infused to ensure improvement of potassium. Anticipate discharge to [facility] this afternoon if lab showing improvement. Will have pt F/U with [facility] in 1 week to recheck lab. See orders for details.
[2016-10-31 15:27] VITALS: BP 109/72; PULSE 80; RESP 18; TEMP 96.4; O2SAT 100
[2016-10-31 15:38] VITALS: BMI 20.6
--- NOTE | 2016-10-31 16:10 | Discharge Summary ---
Discharge Information Date of admission: 10/30/16 17:24 Anticipated date of discharge: 10/31/16 Attending Physician: Murtaza Luu MD Consults: 10/30/16 18:24 Dietary Consult [CONS] Routine - Discharge Diagnosis (1) Acute kidney injury Status: Resolved (2) Hypokalemia Problem Details: Not POA Status: Acute (3) Hyponatremia Problem Details: POA Status: Resolved (4) Hypomagnesemia Problem Details: POA Status: Resolved (5) Metabolic alkalosis Status: Chronic (6) Ulcerative colitis Qualifiers: Ulcerative colitis location: unspecified ulcerative colitis location Digestive disease complication type: without complication Qualified Code(s): K51.90 - Ulcerative colitis, unspecified, without complications Status: Chronic (7) Short gut syndrome Status: Chronic (8) BPH (benign prostatic hyperplasia) Qualifiers: Lower urinary tract symptom presence: symptoms absent Qualified Code(s): N40.0 - Benign prostatic hyperplasia without lower urinary tract symptoms Status: Chronic (9) Anemia Qualifiers: Anemia type: other cause Other causes of anemia: chronic disease, other Qualified Code(s): D63.8 - Anemia in other chronic diseases classified elsewhere Status: Chronic (10) Tobacco dependence Status: Chronic (11) Polysubstance abuse Problem Details: Intreatment at [facility]. Status: Chronic (12) Stage 3 chronic kidney disease Status: Acute - Laboratory Labs: Laboratory Tests 10/30/16 15:57 Sodium 130 L Potassium 4.0 Chloride 66 L Carbon Dioxide 48 H* Anion Gap 16 H BUN 87.0 H* Creatinine 3.5 H GFR Calculation 18 BUN/Creatinine Ratio 25 Glucose 124 H Magnesium 1.2 L AST 38 ALT 33 10/31/16 05:55 10/31/16 14:56 - Radiology Radiology: Date of Exam: 10/31/16 PROCEDURE: US renal BI FINDINGS: Both kidneys are present with normal cortical thickness and echogenicity. No evidence for collecting system dilatation, contour deforming mass, or abnormal perinephric fluid collection. The right kidney measures 10.6 cm in length, and the left kidney measures 12 cm in length. Possible small stone in the superior pole right kidney. Doppler flow noted to both kidneys. IMPRESSION: No hydronephrosis. History of Present Illness HPI: 51 y/o WM with short gut syndrome secondary to UC and Hx of colectomy and ostomy presents to ED for evaluation of lab abnormality and weakness. Has history of low potassium and magnesium secondary to short gut-does take his oral replacements faithfully. Was seen at [facility] ED on 10/23 due to cramping and elevated creatinine. At that time creatinine 2.7 and potassium low at 2.9 with magnesium low at 1.4. Was treated and release-hospitalization offered to patient , but as in [facility] to help his recovery he decline admission so as not to slow his progress. Since then has been adherent with plenty of water intake as well as sport drink. Not having n/v or ab pain. Stool output still increased. Had repeat lab done showing persistent abnormality-pt also noting he has cramps and spasms to hands and leg. He has not been having breathing problems-no SOA, cough , congestion. Denies chest pressure, pain, or palpitations. Urine output decreased-notes little urination since his ostomy 7 years ago. Stream slow and hard to start-to significant change with Flomax. Denies itching. No f/c. In ED, lab was repeated. Creatinine with increase from 2.7 to 3.5. Potassium normal at 4.0 but magnesium decreased to 1.2. Dr Luu notified and patient placed in OBS for hydration and correction of his electrolyte disturbance. For complete details of the H&P refer to that document. Objective Vital signs: Temperature 96.4 F L 10/31/16 15:27 Pulse Rate 80 10/31/16 15:27 Respiratory Rate 18 10/31/16 15:27 Blood Pressure 109/72 10/31/16 15:27 Pulse Oximetry 100 10/31/16 15:27 Oxygen Delivery Method Room Air Height: 1.68 m Weight: 57.9 kg Body Mass Index: 20.6 Hospital Course This is a general summary of the patient's hospital course. For more details refer to the complete medical record. Hospital course: 10/30/[address] patient in OBS for treatment of his BRAULIO and correction of electrolyte abnormalities. NS at 150cc/hr to help renal status and improve sodium. Renal US secondary to BRAULIO. Nursing to check post void residuals due to BRAULIO. Give magnesium 1g IV x1-cautiously replace due to BRAULIO. Continue home medications, holding potassium and NSAID due to elevated creatinine. SCD for DVT prevention. RT for tobacco cessation-pt interested in stopping smoking. May use Nicotine patch. Tylenol as needed for pain. Check prealbumin to assess nutritional status - continue Boost BID. Recheck BMP, Mg, Phos, and CBC in am. Code status full as per patient request. 10/31/16 Clinically feeling well. Muscle cramps and spasms resolved. No n/v. Eating well. Renal US showing no hydronephrosis. Creatinine with decrease from 3.5 to 2.3 with this morning lab. Restart potassium - BRAULIO improving and potassium decreased. With decrease of potassium, will give IV bolus. Will recheck BMP after IV potassium bolus infused to ensure improvement of potassium. Repeat potassium improved to 3.1. Creatinine decreased to 2.1 Will discharge to [facility] this afternoon. Will have pt F/U with [facility] in 1 week to recheck lab. Check BMP and Magnesium at that time. See orders for details. Time spent with patient: discharge greater than 30 minutes DVT Prophylaxis: SCD's Discharge Plan - Med Rec/Dispo Referrals/Follow Up: Micheline Alston, EDUARDO [Advanced Practice Nurse] - 1 Week (Hospital follow up - check BMP and magnesium due to Resolving BRAULIO from patients short gut syndrome. ) Additional Instructions: Take additional potassium 20mEg daily with lunch for 2 days. Prescriptions: New Gabapentin [Neurontin] 600 mg PO HS tablet Magnesium Oxide [Magox] 400 mg PO TID tablet Potassium Chloride ER Tab [K-Dur] 20 meq PO WL tablet Gabapentin [Neurontin] 300 mg PO 0800 capsule Continue Tamsulosin [Flomax] 0.4 mg PO HS Sertraline [Zoloft] 100 mg PO DAILY Potassium Chloride ER Tab [K-Dur] 40 meq PO BID Sucralfate [Carafate] 1 gm PO QID Naproxen [Naprosyn] 500 mg PO BID Dicyclomine HCl [Bentyl] 20 mg PO TID Acetaminophen [Acetaminophen Extra Strength] 1,000 mg PO Q8H PRN PRN Reason: Pain Changed OLANZapine [Olanzapine] 10 mg PO HS #0 No Action Magnesium Oxide [Magnesium] 400 mg PO TID #90 cap Gabapentin [Neurontin] 300 mg PO BID Discharge Instructions/Outpatient Orders: Final Provider Discharge Instructions Location: Determined By Patient - Disposition 01 Discharged Home, Self-Care - Attestation Attestation Narrative: 10/31/16 16:20 I have independently interviewed and examine patient prior to discharge. See my progress note from today for details. Medically stable for discharge to home.
[2016-10-31] MEDS ORDERED: GABAPENTIN 600 MG TABLET PO SCH (22:00)
== END 2016-10-31 16:50 | disposition home or self-care (01) ==
LOC: MED 15:24 → ED 15:24 → MED 18:05
PROVIDERS: ADMIT Hospitalist; ATTEND Hospitalist

== ENCOUNTER 2016-11-10 17:19 | Observation (INO) ==
[2016-11-10] MEDS ORDERED: ONDANSETRON 4 MG/2 ML INJECTION IVP PRN (17:27)
[2016-11-10] MEDS ORDERED: NS 1,000 ML IV SCH (17:45)
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
[2016-11-10 18:19] VITALS: BMI 21.2
[2016-11-10] MEDS: MAGNESIUM SULFATE 1gm PREMIX 1 GM/100 ML BAG IV SCH ×2 (19:38→20:54)
[2016-11-10] MEDS ORDERED: ZOLPIDEM 5 MG TABLET PO PRN (19:48)
--- NOTE | 2016-11-10 19:58 | History & Physical Report ---
History of Present Illness Date: 11/10/16 Chief complaint: Electolyte problems HPI: 51 y/o WM with short gut syndrome secondary to colectomy from UC is made direct admit to [facility] for correction of electrolyte abnormalities. Was seen in Dr Sorensen' s renal clinic this afternoon-had lab this morning with sodium 130, potassium 2.6, creatinine 2.1, magnesium 0.8, phos 3.3. Patient has been adherent with his medications-does take 80meq potassium in divided doses daily as well as 800mg magnesium 3 times a day. Denies ab pain or nausea with these medicine. Eating normally. Trying to drink plenty of fluids and sport drinks. Stools output always brisk. Was seen in GI clinic today as well - Carafate and dicyclomine stopped and pt to start Xifaxan 550mg TID for 14 days. Breathing stable-no increased cough or congestion. Denies chest pressure or pain. Notes minor muscles cramps-essentially at his baseline. No recent f/c. Review of Systems Comprehensive ROS: completed and no additional positive findings except those as stated - Musculoskeletal Musculoskeletal: Present: muscle cramps (Minor ) - Psychiatric Psychiatric: Present: anxiety (Told will be done with [facility] by Thursday and not sure what he will do afterwards. ) [facility] Patient Stated Medical History Hypotension Yes Other GI Yes: ULCERATIVE COLITIS, short bowel syndrome Other Yes: SLOW FLOW Substance Use Disorder Yes: Meth Medical History Updates: Methamphetamine abuse-In [facility] for treatment. Ulceratic colitis. Short bowel syndrome. Electrolyte disturbances. BPH Surgical History: Colectomy with ostomy. L3-L4 fusion Family History: Father of heart problems. Mother living - good health. - Social History Smoking status: Current every day smoker packs per day: 0.5 Substance use type: former substance user, methamphetamine Substance last used: unknown Alcohol intake: former Housing: other (Residing in [facility]) Medications Home Medications Medication Instructions Recorded Confirmed Type Gabapentin [Neurontin] 300 mg PO BID 10/23/16 11/10/16 History Potassium Chloride ER Tab [K-Dur] 40 meq PO QID 10/23/16 11/10/16 History Sertraline [Zoloft] 100 mg PO DAILY 10/23/16 11/10/16 History Tamsulosin [Flomax] 0.4 mg PO HS 10/23/16 11/10/16 History Diphenoxylate HCl/Atropine 2 tab PO QID 11/10/16 11/10/16 History [Lomotil 2.5-0.025 mg Tablet] Methocarbamol [Robaxin] 1 tab PO BID 11/10/16 11/10/16 History Allergies Allergy/AdvReac Type Severity Reaction Status Date / Time No Known Allergies Allergy Verified 11/04/16 18:01 Exam Vital Signs: Oxygen Delivery Method Room Air Height: 1.68 m Weight: 59.5 kg Body Mass Index: 21.2 - Constitutional Present: no acute distress, well nourished, well developed, cooperative - Routine HEENT Exam Head: Present: normocephalic, atraumatic Eye: Present: EOMI, PERRL ENT: Present: mucous membranes moist - Routine Neck Exam Present: supple, full ROM, trachea midline - Routine Respiratory Exam Present: CTA bilaterally. Absent: respiratory distress, rhonchi, wheezes, crackles - Routine Cardiovascular Exam Present: RRR - Routine Abdominal Exam Present: soft, normoactive bowel sounds, non distended, non tender, ostomy - Routine Extremities Exam Present: no edema, pulses intact, normal capillary refill. Absent: cyanosis, clubbing - Routine Skin Exam Present: intact, warm - Routine Neurological Exam Present: alert, oriented X3, CN II-XII intact, vision grossly intact, hearing grossly intact. Absent: motor deficit - Routine Psychiatric Exam Present: normal affect, cooperative, good insight, good judgment Assessment and Plan (1) Hypokalemia Problem details: POA Current visit: No Status: Acute (2) Hypomagnesemia Problem details: POA Current visit: No Status: Acute (3) Short gut syndrome Current visit: No Status: Chronic (4) Ulcerative colitis Current visit: No Status: Chronic Resuscitation Status: Full Code Assessment and Plan: Will place patient in outpatient OBS for correction of electrolytes abnormalities. 2 gram Magnesium IV bolus. 10 mEq IV potassium boluses x4. Tele to monitor for cardiac abnormalities. Continue home medications. Recheck lab after boluses - potentially need additional IV boluses. Will contact CM about pt's concerns for his care after [facility] treatment. Discussed case with Dr Sorensen - reviewed lab and treatment. - Time spent with patient 25 - 35 minutes Sepsis Assessment - Evaluation Sepsis screening result: No Definite Risk Hospital Course Summary Disclaimer: The visit summary below is not to be considered part of the above Progress Note. Hospital Course: 11/10/16: OBS secondary to hypokalemia and hypomagnesemia due to short gut syndrome. Will place patient in outpatient OBS for correction of electrolytes abnormalities. 2 gram Magnesium IV bolus. 10 mEq IV potassium boluses x4. Tele to monitor for cardiac abnormalities. Continue home medications. Recheck lab after boluses - potentially need additional IV boluses. Will contact CM about pt's concerns for his care after [facility] treatment. Discussed case with Dr Sorensen - reviewed lab and treatment.
[2016-11-10] MEDS: NICOTINE 7 MG PATCH TD SCH (20:54)
[2016-11-10] MEDS: RIFAXIMIN 550 MG TABLET PO SCH (21:37)
[2016-11-10] MEDS: METHOCARBAMOL 500 MG TABLET PO SCH (21:37)
[2016-11-10] MEDS: DIPHENOXYLATE /ATROPINE TABLET PO SCH (21:37)
[2016-11-10] MEDS: GABAPENTIN 300 MG CAPSULE PO SCH (21:46)
[2016-11-10] MEDS ORDERED: TAMSULOSIN 0.4 MG CAPSULE PO SCH (22:00)
[2016-11-10] MEDS ORDERED: OLANZapine 10 MG TABLET PO SCH (22:00)
[2016-11-10] MEDS: LIDOCAINE 1% 2ml INJ 10 MG, POTASSIUM CHLORIDE INJ 10 MEQ in NS 100 ML IV SCH ×2 (22:11→23:28)
[2016-11-11] MEDS: LIDOCAINE 1% 2ml INJ 10 MG, POTASSIUM CHLORIDE INJ 10 MEQ in NS 100 ML IV SCH ×6 (00:34→13:53)
[2016-11-11] MEDS ORDERED: POTASSIUM CHLORIDE INJ 40 MEQ in NS 1,000 ML IV SCH (05:30)
[2016-11-11 07:27] VITALS: PULSE 68; TEMP 95.4
[2016-11-11] MEDS: MAGNESIUM OXIDE 400 MG TABLET PO SCH ×2 (07:30→09:14)
[2016-11-11] MEDS ORDERED: SERTRALINE 100 MG TABLET PO SCH (09:00)
[2016-11-11] MEDS ORDERED: NICOTINE PATCH REMOVAL TD SCH (09:00)
[2016-11-11] MEDS: NICOTINE 7 MG PATCH TD SCH (09:13)
[2016-11-11] MEDS: GABAPENTIN 300 MG CAPSULE PO SCH (09:14)
[2016-11-11] MEDS: METHOCARBAMOL 500 MG TABLET PO SCH (09:14)
[2016-11-11] MEDS: DIPHENOXYLATE /ATROPINE TABLET PO SCH ×2 (09:14→14:03)
[2016-11-11] MEDS: RIFAXIMIN 550 MG TABLET PO SCH (09:21)
--- NOTE | 2016-11-11 09:54 | Progress Note ---
Subjective: F/U: Hypokalemia, Hypomagnesemia, Short gut syndrome Doing well this morning. Not feeling cramps or spams to ext. Breathing well-no SOA or congestion with IVF. Eating and drinking well-no nausea or ab pain. Stool output the same. Not seeing increase in urine output. Trying to ambulate frequently-does NOT like to use SCD. Objective Vital signs: Temperature 95.4 F L 11/11/16 07:25 Pulse Rate 68 11/11/16 07:25 Respiratory Rate 16 11/11/16 07:25 Blood Pressure 106/66 11/11/16 07:25 Pulse Oximetry 99 11/11/16 07:25 Oxygen Delivery Method Room Air Weight: 59 kg - Constitutional Present: no acute distress, well nourished, well developed, cooperative - Routine HEENT Exam Head: Present: normocephalic, atraumatic Eye: Present: EOMI, PERRL ENT: Present: mucous membranes moist - Routine Respiratory Exam Present: CTA bilaterally. Absent: respiratory distress, rhonchi, wheezes, crackles - Routine Cardiovascular Exam Present: RRR, no murmur - Routine Abdominal Exam Present: soft, normoactive bowel sounds, non distended, non tender, ostomy - Routine Musculoskeletal Exam Musculoskeletal: Present: no clubbing or cyanosis, normal strength, normal gait - Routine Skin Exam Present: intact, warm. Absent: mottling - Routine Neurological Exam Present: alert, oriented X3, CN II-XII intact, vision grossly intact, hearing grossly intact. Absent: motor deficit - Routine Psychiatric Exam Present: normal affect, normal thought process, cooperative, good insight, good judgment Results - Labs CBC & Chem 7: 11/11/16 04:25 Assessment and Plan (1) Hypokalemia Problem details: POA Current visit: No Status: Acute (2) Hypomagnesemia Problem details: POA Current visit: No Status: Acute (3) Short gut syndrome Current visit: No Status: Chronic (4) Ulcerative colitis Current visit: No Status: Chronic DVT Prophylaxis: other (Ambulation ) Resuscitation Status: Full Code Assessment and Plan: Potassium improved to 2.9, but still decreased-will give 4 more IV boluses. Recheck BMP post infusion. CM to check on post discharge Encourage ambulation. Discussed with patient at length about his short gut syndrome and how it will effect electrolytes. Discussed about IV potassium infusions and potential risks. Will need continued IV fluid/electrolyte infusions in outpatient setting post discharge. Anticipate discharge to home after IV potassium bolus if doing well. Time spent with patient care 35 minutes-counselling patient and working on discharge. Sepsis Assessment - Evaluation Sepsis screening result: No Definite Risk Hospital Course Summary Disclaimer: The visit summary below is not to be considered part of the above Progress Note. Hospital Course: 11/10/16: OBS secondary to hypokalemia and hypomagnesemia due to short gut syndrome. Will place patient in outpatient OBS for correction of electrolytes abnormalities. 2 gram Magnesium IV bolus. 10 mEq IV potassium boluses x4. Tele to monitor for cardiac abnormalities. Continue home medications. Recheck lab after boluses - potentially need additional IV boluses. Will contact CM about pt's concerns for his care after [facility] treatment. Discussed case with Dr Sorensen - reviewed lab and treatment. 11/11/16 Potassium improved to 2.9, but still decreased-will give 4 more IV boluses. Recheck BMP post infusion. CM to check on post discharge Encourage ambulation. Discussed with patient at length about his short gut syndrome and how it will effect electrolytes. Discussed about IV potassium infusions and potential risks. Will need continued IV fluid/electrolyte infusions in outpatient setting post discharge. Anticipate discharge to home after IV potassium bolus if doing well.
[2016-11-11 15:44] VITALS: BP 109/67; RESP 17; O2SAT 100
--- NOTE | 2016-11-11 16:17 | Discharge Summary ---
Discharge Information Date of admission: 11/10/16 17:53 Anticipated date of discharge: 11/11/16 Attending Physician: Murtaza Luu MD Primary care physician: Lluvia Galicia APRN - Discharge Diagnosis Discharge Diagnosis: Hypokalemia- POA Hypomagnesemia- POA Short gut syndrome Ulcerative colitis - Laboratory Labs: 11/11/16 15:32 Laboratory Tests 11/11/16 04:25 Magnesium 1.7 History of Present Illness HPI: 51 y/o WM with short gut syndrome secondary to colectomy from UC is made direct admit to [facility] for correction of electrolyte abnormalities. Was seen in Dr Sorensen' s renal clinic this afternoon-had lab this morning with sodium 130, potassium 2.6, creatinine 2.1, magnesium 0.8, phos 3.3. Patient has been adherent with his medications-does take 80meq potassium in divided doses daily as well as 800mg magnesium 3 times a day. Denies ab pain or nausea with these medicine. Eating normally. Trying to drink plenty of fluids and sport drinks. Stools output always brisk. Was seen in GI clinic today as well - Carafate and dicyclomine stopped and pt to start Xifaxan 550mg TID for 14 days. Breathing stable-no increased cough or congestion. Denies chest pressure or pain. Notes minor muscles cramps-essentially at his baseline. No recent f/c. For complete details of the H&P refer to that document. Objective Vital signs: Temperature 95.4 F L 11/11/16 15:00 Pulse Rate 68 11/11/16 15:00 Respiratory Rate 17 11/11/16 15:00 Blood Pressure 109/67 11/11/16 15:00 Pulse Oximetry 100 11/11/16 15:00 Oxygen Delivery Method Room Air Weight: 59 kg Hospital Course This is a general summary of the patient's hospital course. For more details refer to the complete medical record. Hospital course: 11/10/16: OBS secondary to hypokalemia and hypomagnesemia due to short gut syndrome. Will place patient in outpatient OBS for correction of electrolytes abnormalities. 2 gram Magnesium IV bolus. 10 mEq IV potassium boluses x4. Tele to monitor for cardiac abnormalities. Continue home medications. Recheck lab after boluses - potentially need additional IV boluses. Will contact CM about pt's concerns for his care after [facility] treatment. Discussed case with Dr Sorensen - reviewed lab and treatment. 11/11/16 Potassium improved to 2.9, but still decreased-will give 4 more IV boluses. Recheck BMP post infusion. CM to check on post discharge Encourage ambulation. Discussed with patient at length about his short gut syndrome and how it will effect electrolytes. Discussed about IV potassium infusions and potential risks. Will need continued IV fluid/electrolyte infusions in outpatient setting post discharge. Anticipate discharge to home after IV potassium bolus if doing well. Repeat potassium increased to 3.4 with creatinine 1.4. Will discharge to home. F/U with [facility] for medical care. Likely will need intermittent IV infusion of potassium/magnesium in infusion center Time spent with patient: discharge greater than 30 minutes DVT Prophylaxis: other (ambulation) Discharge Plan - Med Rec/Dispo Referrals/Follow Up: Lluvia Galicia APRN [Family Provider] - Prescriptions: New Rifaximin [Xifaxan] 550 mg PO TID tablet Magnesium Oxide [Magox] 800 mg PO TID #100 tablet Continue Tamsulosin [Flomax] 0.4 mg PO HS Sertraline [Zoloft] 100 mg PO DAILY Potassium Chloride ER Tab [K-Dur] 40 meq PO QID Methocarbamol [Robaxin] 1 tab PO BID Gabapentin [Neurontin] 300 mg PO BID OLANZapine [Olanzapine] 10 mg PO HS #0 Diphenoxylate HCl/Atropine [Lomotil 2.5-0.025 mg Tablet] 2 tab PO QID Discontinued Magnesium Oxide [Magnesium] 400 mg PO TID #90 cap Discharge Instructions/Outpatient Orders: Final Provider Discharge Instructions Location: Determined By Patient - Disposition 01 Discharged Home, Self-Care - Attestation Attestation Narrative: 11/11/16 16:23 I have independently interviewed and examined pt prior to discharge. See my progress note for details. Medically stable for discharge.
== END 2016-11-11 16:00 | disposition home or self-care (01) ==
LOC: MED
PROVIDERS: ADMIT Hospitalist; ATTEND Hospitalist